=== PATIENT | female | born 1930 | race Caucasian/White ===

== ENCOUNTER 2016-10-27 13:14 | Emergency (ER) | payer MEDICAID ==
[~2016-10-27] VITALS: Ht 152.4 cm; Wt 60.0 kg
[~2016-10-27 13:14] MED LIST: ATOR40TA21 PO; BENA20TA48 PO; CITA20TA6 PO; CLOP75TA4 PO; LEVE500S9 PO; MTF1000T PO
[2016-10-27 13:26] VITALS: Ht 152.4 cm; Wt 60.0 kg
[2016-10-27] MEDS ORDERED: SOD CHLORIDE 0.9% 500 ML IV STA (14:03)
[2016-10-27] MEDS ORDERED: CITA20TA6 PO (14:19)
[2016-10-27] MEDS ORDERED: ATOR40TA68 PO (14:19)
[2016-10-27] MEDS ORDERED: METF1000 PO (14:20)
[2016-10-27] MEDS ORDERED: LEVE500T8 PO (14:20)
[2016-10-27] MEDS ORDERED: CLOP75TA4 PO (14:20)
[2016-10-27] MEDS ORDERED: FER325 PO (14:21)
[2016-10-27] MEDS ORDERED: GLIM4TAB PO (14:21)
[2016-10-27] MEDS ORDERED: LOSA25TA5 PO (14:21)
[2016-10-27] MEDS ORDERED: CALC-267 PO (14:23)
[2016-10-27 14:26] LABS: ADD SCAN DIFF NO
[2016-10-27 14:31] LABS: BASOPHILS % 0.6 % (0.0-2.0); EOSINOPHILS % 0.6 % (0.0-7.0); HEMATOCRIT 35.2 % (37.0-47.0); HEMOGLOBIN 11.7 g/dl (12.0-16.0); LYMPHOCYTES % 28.1 % (15.0-51.0); MEAN CORPUSCULAR HEMOGLOBIN 29.2 pg (29.0-33.0); MEAN CORPUSCULAR HGB CONC 33.2 g/dl (32.0-37.0); MEAN CORPUSCULAR VOLUME 87.8 fl (82.0-101.0); MEAN PLATELET VOLUME 9.2 fl (7.4-10.4); MONOCYTE # 0.5 10^3/ul (0.3-0.9); MONOCYTES % 12.7 % (0.0-11.0); NEUTROPHIL # 2.1 10^3/ul (1.6-7.5); NEUTROPHILS % 57.2 % (39.0-77.0); PLATELET COUNT 265 10^3/UL (140-415); RED BLOOD COUNT 4.01 10^6/ul (4.20-5.40); RED CELL DISTRIBUTION WIDTH 13.8 % (11.5-14.5); WHITE BLOOD COUNT 3.6 10^3/ul (4.8-10.8)
--- NOTE | 2016-10-27 14:32 | RADRPT ---
PROCEDURE: CT Head without contrast. CLINICAL INDICATION: Altered mental status TECHNIQUE: The study was performed utilizing a GE 64-slice multidetector CT scanner. Direct spiral axial CT images of the brain were obtained from the vertex to the skull base without contrast. Carrie nal and sagittal reformatted images are provided. The CTDI vol is 44.84 mGy and the DLP is 630.2 mGy -cm. The images were reviewed on a PACS workstation. COMPARISON: 07/18/2012 FINDINGS: Mild to moderate diffuse atrophy is seen with a compensatory ventricular enlargement. Mild to moder ate white matter disease in the periventricular and deep white matter is seen. A chronic left poste rior cerebral artery territory infarct is once again seen and is unchanged. The remainder of the gr ay-white matter differentiation is maintained. No intra or extra-axial fluid collection or mass eff ect or shift in the midline structures is seen. The visualized paranasal sinuses, mastoid air cells , orbits, and calvarium are unremarkable. Vascular calcifications are seen. IMPRESSION: 1. No acute intracranial pathology. 2. Stable mild to moderate diffuse volume loss and mild to moderate chronic microvascular ischemic changes. 3. 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 RPTAT: HPNM Physician Twin Date Time Electronically viewed and signed by Physician Twin on 10/27/2016 14:32 /
--- NOTE | 2016-10-27 14:52 | RADRPT ---
PROCEDURE: XR Chest. CLINICAL INDICATION: Shortness of breath. Altered mental status. TECHNIQUE: Single frontal view. COMPARISON: None. FINDINGS: The lungs are clear. The heart is enlarged. There is calcification in the aorta consistent with atherosclerosis. There is no pleural effusion. There is no pneumothorax. IMPRESSION: 1. Cardiomegaly and atherosclerosis. 2. Otherwise normal chest x-ray. RPTAT: QQ .Bruno Tolliver MD, MD Date Time Electronically viewed and signed by .Bruno Tolliver MD, MD on 10/27/2016 14:51 .R/
[2016-10-27 14:58] LABS: INR 1.02; PROTIME 13.4 Sec (12.2-14.2)
[2016-10-27 14:59] LABS: PARTIAL THROMBOPLASTIN TIME 30.8 Sec (25.0-35.0)
[2016-10-27 15:05] LABS: ALANINE AMINOTRANSFERASE 26 IU/L (13-69); ALBUMIN 4.6 g/dl (3.3-4.9); ALBUMIN/GLOBULIN RATIO 2.19; ALKALINE PHOSPHATASE 108 IU/L (42-121); ANION GAP 21 (8-16); ASPARTATE AMINO TRANSFERASE 22 IU/L (15-46); BILIRUBIN,INDIRECT 0.1 mg/dl (0-1.1); BILIRUBIN,TOTAL 0.1 mg/dl (0.2-1.3); BLOOD UREA NITROGEN 13 mg/dl (7-20); CALCIUM 9.5 mg/dl (8.4-10.2); CARBON DIOXIDE 27 mmol/L (21-31); CHLORIDE 93 mmol/L (97-110); CREATININE 0.71 mg/dl (0.44-1.00); GLUCOSE 250 mg/dl (70-220); POTASSIUM 4.4 mmol/L (3.5-5.1); SODIUM 137 mmol/L (135-144); TOTAL PROTEIN 6.7 g/dl (6.1-8.1)
--- NOTE | 2016-10-27 15:07 | ERA ---
ER Documentation Chief Complaint Date/Time DATE: 10/27/16 TIME: 15:04 Chief Complaint r.side flank pain with burning with urination and confusion x 3 days HPI 86-year-old female who presents the emergency room with some mild confusion. There is no flank pain despite what is noted in triage. The family members concern that the patient may be slightly confused and having some hallucinations which is consistent when she has a bladder infection in the past. The patient has a remote history of stroke but no slurred speech no motor weakness or no head injury or headaches currently. She denies any chest pain or shortness of breath. ROS All systems reviewed and are negative except as per history of present illness. Medications Home Meds Reported Medications Calc/D3/Mag/Zn/Agricultural And Forestry Supervisor/Fuad/[place] (Calcium 600 + Vit D) 1 Each Tablet, 1 TAB PO BID , TAB 10/27/16 Losartan Potassium* (Losartan Potassium*) 25 Mg Tablet, 25 MG PO DAILY, TAB 10/27/16 Glimepiride* (Glimepiride*) 4 Mg Tablet, 4 MG PO WITH BREAKFAST, TAB 10/27/16 Ferrous Sulfate* (Ferrous Sulfate*) 325 Mg Tabec, 325 MG PO DAILY, TAB 10/27/16 Metformin Hcl* (Metformin Hcl*) 1,000 Mg Tablet, 1000 MG PO WITH BREAKFAST DINNE , #60 TAB 10/27/16 Levetiracetam* (Levetiracetam*) 500 Mg Tablet, 1000 MG PO BID, TAB 10/27/16 Clopidogrel Bisulfate* (Clopidogrel Bisulfate*) 75 Mg Tablet, 75 MG PO DAILY, # 30 TAB 10/27/16 Citalopram Hydrobromide* (Citalopram Hydrobromide*) 20 Mg Tablet, 20 MG PO DAILY , #30 TAB 10/27/16 Atorvastatin* (Atorvastatin*) 40 Mg Tablet, 40 MG PO QHS, #30 TAB 10/27/16 Discontinued Reported Medications Metformin* (Glucophage*) 1,000 Mg Tablet, 1000 MG PO BID 04/16/13 Clopidogrel Bisulfate* (Clopidogrel Bisulfate*) 75 Mg Tablet, 75 MG PO DAILY 07/18/12 Levetiracetam* (Keppra*) 500 Mg/5 Ml Solution, 500 MG PO DAILY 07/18/12 Citalopram Hydrobromide* (Citalopram Hydrobromide*) 20 Mg Tablet, 20 MG PO DAILY 07/18/12 Benazepril Hcl* (Benazepril Hcl*) 20 Mg Tablet, 20 MG PO DAILY 07/18/12 Atorvastatin (Lipitor) 40 Mg Tablet, 40 MG PO DAILY 07/18/12 Allergies Allergies: Coded Allergies: No Known Drug Allergies (Verified Allergy, Unknown, 10/27/16) PMhx/Soc History of Surgery: Yes (TUBAL LIGATION) Anesthesia Reaction: No Hx Neurological Disorder: No Hx Respiratory Disorders: No Hx Cardiac Disorders: Yes (HTN) Hx Psychiatric Problems: No Hx Miscellaneous Medical Probl: Yes (DM, HIGH CHOLESTEROL) Hx Alcohol Use: No Hx Substance Use: No Hx Tobacco Use: No Smoking Status: Never smoker FmHx Family History: No diabetes Physical Exam Vitals Vital Signs Date Time Temp Pulse Resp B/P Pulse Ox O2 Delivery O2 Flow Rate FiO2 10/27/16 14:15 Nasal Cannula 1 10/27/16 13:26 97.3 88 16 170/78 96 Physical Exam General: Well developed, well nourished, no acute distress Head: Normocephalic, atraumatic. Eyes: Pupils equally reactive, EOM intact ENT: Moist mucous membranes Neck: Supple, no lymphadenopathy Respiratory: Lungs clear bilaterally, no distress Cardiovascular: RRR, no murmurs, rubs, or gallops Abdominal: Soft, non-tender, non-distended, no peritoneal signs : Deferred MSK: No edema, no unilateral swelling, 5/5 strength Neurologic: Alert and oriented, moving all extremities, normal speech, no focal weakness, no cerebellar signs Skin: No rash Psych: Normal mood Result Diagram: 10/27/16 1415 10/27/16 1415 Results 24 hrs Laboratory Tests Test 10/27/16 14:11 10/27/16 14:15 10/27/16 14:45 Bedside Glucose 257mg/dL White Blood Count 3.610^3/ul Red Blood Count 4.0110^6/ul Hemoglobin 11.7g/dl Hematocrit 35.2% Mean Corpuscular Volume 87.8fl Mean Corpuscular Hemoglobin 29.2pg Mean Corpuscular Hemoglobin Concent 33.2g/dl Red Cell Distribution Width 13.8% Platelet Count 95870^3/UL Mean Platelet Volume 9.2fl Neutrophils % 57.2% Lymphocytes % 28.1% Monocytes % 12.7% Eosinophils % 0.6% Basophils % 0.6% Nucleated Red Blood Cells % 0.0/100WBC Neutrophils # 2.110^3/ul Lymphocytes # 1.010^3/ul Monocytes # 0.510^3/ul Eosinophils # 0.010^3/ul Basophils # 0.010^3/ul Nucleated Red Blood Cells # 0.010^3/ul Prothrombin Time 13.4Sec Prothrombin Time Ratio 1.0 INR International Normalized Ratio 1.02 Activated Partial Thromboplast Time 30.8Sec Sodium Level 137mmol/L Potassium Level 4.4mmol/L Chloride Level 93mmol/L Carbon Dioxide Level 27mmol/L Anion Gap 21 Blood Urea Nitrogen 13mg/dl Creatinine 0.71mg/dl Glucose Level 250mg/dl Calcium Level 9.5mg/dl Total Bilirubin 0.1mg/dl Direct Bilirubin 0.00mg/dl Indirect Bilirubin 0.1mg/dl Aspartate Amino Transf (AST/SGOT) 22IU/L Alanine Aminotransferase (ALT/SGPT) 26IU/L Alkaline Phosphatase 108IU/L Troponin I < 0.012ng/ml Total Protein 6.7g/dl Albumin 4.6g/dl Globulin 2.10g/dl Albumin/Globulin Ratio 2.19 Free Thyroxine Index 3.06ug/ml Thyroxine (T4) 9.4ug/dl Triiodothyronine (T3) Uptake 32.5% Urine Color YELLOW Urine Clarity CLEAR Urine pH 6.0 Urine Specific [place] 1.013 Urine Ketones TRACEmg/dL Urine Nitrite NEGATIVEmg/dL Urine Bilirubin NEGATIVEmg/dL Urine Urobilinogen NEGATIVEmg/dL Urine Leukocyte Esterase NEGATIVELeu/ul Urine Microscopic RBC 5/HPF Urine Microscopic WBC 0/HPF Urine Hemoglobin 1+mg/dL Urine Glucose 2+mg/dL Urine Total Protein NEGATIVEmg/dl Current Medications Medications (Trade) Dose Ordered Sig/Memo Route PRN Reason Start Time Stop Time Status Last Admin Dose Admin Sodium Chloride (NS) 500 ml @ 500 mls/hr Q1H STAT IV 10/27/16 14:03 10/27/16 15:02 DC 10/27/16 14:20 Ondansetron HCl (Zofran Inj) 4 mg BRIDGE ORDER PRN IV NAUSEA AND/OR VOMITING 10/27/16 16:00 10/28/16 15:59 Acetaminophen (Tylenol Tab) 650 mg ER BRIDGE PRN PO MILD PAIN/FEVER 10/27/16 16:00 10/28/16 15:59 Procedures/MDM EKG, MONITORS, & DIAGNOSTIC IMAGING: EKG: I reviewed and interpreted a 12-lead EKG. Rhythm: Normal sinus rhythm Ectopy: None Intervals: No abnormalities ST segments: No elevations or depressions T waves: No contiguous inversions Chest x-ray: I reviewed and interpreted a 1 view of the chest Mediastinum: No enlargement Cardiac silhouette: No cardiomegaly Airspace: Clear lung sood bilaterally without evidence of pneumothorax Bones: No evidence of fracture CT brain: IMPRESSION: 1. No acute intracranial pathology. 2. Stable mild to moderate diffuse volume loss and mild to moderate chronic microvascular ischemic changes. 3. 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 RPTAT: HPNM LAB INTERPRETATION: Mild leukopenia MEDICAL DECISION MAKING: The patient presents with possible mild altered mental status versus hallucinations. Given her age and prior history this is likely secondary to UTI. Low clinical concern for stroke. The patient is otherwise in good spirits , happy with a nonfocal neurologic exam. She is caring for activities of daily living and has family members for support. While he would have a low threshold for hospitalization given the altered mental status in this age group if there is a clear urinary tract infection that would be likely explain her symptoms outpatient management may be appropriate. ER COURSE: The patient's urinalysis does not suggest UTI. The patient is resting comfortably. The family member states, using an clothespin drier operator, that occasionally she gets this way when she has not been sleeping well and this is the case. She states that this is a recurring issue for the patient does not wish to be hospitalized. I discussed the risks, benefits, alternatives of inpatient versus outpatient management. The patient and family member wish to take the patient home. I believe this is reasonable. They verbalized understanding of the risks including delayed diagnosis, undiagnosed stroke. I kept the patient and/or family informed of laboratory and diagnostic imaging results throughout the emergency room course. DISPOSITION PLAN: We discussed follow up with the patient's primary care doctor within 24 to 48 hours as needed. We also discussed return to the emergency room for worsening symptoms or worsening condition. Outpatient referral: [None required] Departure Diagnosis: Primary Impression: Altered mental status Qualified Code: R41.82 - Altered mental status, unspecified altered mental status type Additional Impression: Hyperglycemia Condition: Stable DEE DEE REED MD Oct 27, 2016 15:07
[2016-10-27 15:13] LABS: ADD UMIC YES; UR ASCORBIC ACID NEGATIVE (NEGATIVE); UR BILIRUBIN (Dip) NEGATIVE (NEGATIVE); UR BLOOD (Dip) 1+ mg/dL (NEGATIVE); UR CLARITY CLEAR (CLEAR); UR COLOR YELLOW (YELLOW); UR GLUCOSE (Dip) 2+ mg/dL (NEGATIVE); UR KETONES (Dip) TRACE mg/dL (NEGATIVE); UR LEUKOCYTE ESTERASE (Dip) NEGATIVE Leu/ul (NEGATIVE); UR NITRITE (Dip) NEGATIVE (NEGATIVE); UR RBC 5 /HPF (0-5); UR SPECIFIC GRAVITY (Dip) 1.013 (1.003-1.030); UR TOTAL PROTEIN (Dip) NEGATIVE (NEGATIVE); UR UROBILINOGEN (Dip) NEGATIVE (NEGATIVE)
[2016-10-27 15:21] LABS: T3 UPTAKE 32.5 % (23.5-40.5); TROPONIN-I < 0.012 ng/ml (0.00-0.12)
[2016-10-27] MEDS ORDERED: ONDANSETRON 4 MG INJ IV PRN (16:00)
[2016-10-27] MEDS ORDERED: ACETAMINOPHEN 325 MG TAB PO PRN (16:00)
[2016-10-27] MEDS ORDERED: POLY10DR19 BOTH EYES (16:15)
[2016-10-27 16:34] VITALS: BP 162/72; PULSE 77; RESP 16; TEMP 97.3
== END 2016-10-27 16:14 | disposition home or self-care (01) ==
LOC: E/R 13:14
DX: R41.82 Altered mental status, unspecified (principal); E11.65 Type 2 diabetes mellitus with hyperglycemia; I10 Essential (primary) hypertension; Z79.01 Long term (current) use of anticoagulants; Z79.84 Long term (current) use of oral hypoglycemic drugs
CPT/HCPCS: 36415; 70450; 71010; 80053; 81001; 82962; 84436; 84479; 84484; 85025; 85610; 85730; J7040; P9612; Z7502; 93005

== ENCOUNTER 2016-12-22 10:10 | Emergency (ER) | payer MEDICAID ==
[~2016-12-22] VITALS: Ht 162.6 cm; Wt 58.0 kg
[~2016-12-22 10:10] MED LIST changes: -ATOR40TA21 PO; +ATOR40TA68 PO; -BENA20TA48 PO; +CALC-267 PO; +FER325 PO; +GLIM4TAB PO; -LEVE500S9 PO; +LEVE500T8 PO; +LOSA25TA5 PO; +METF1000 PO; -MTF1000T PO; +POLY10DR19 BOTH EYES
[2016-12-22 10:13] VITALS: Ht 162.6 cm; Wt 58.0 kg
[2016-12-22] MEDS ORDERED: ONDANSETRON 4 MG INJ IV STA (11:52)
[2016-12-22] MEDS ORDERED: SOD CHLORIDE 0.9% 1,000 ML IV STA (11:52)
[2016-12-22 12:21] LABS: BASOPHILS % 0.5 % (0.0-2.0); EOSINOPHILS % 0.2 % (0.0-7.0); HEMATOCRIT 39.3 % (37.0-47.0); HEMOGLOBIN 13.2 g/dl (12.0-16.0); LYMPHOCYTES # 1.2 10^3/ul (0.8-2.9); LYMPHOCYTES % 19.5 % (15.0-51.0); MEAN CORPUSCULAR HEMOGLOBIN 29.2 pg (29.0-33.0); MEAN CORPUSCULAR HGB CONC 33.6 g/dl (32.0-37.0); MEAN CORPUSCULAR VOLUME 86.9 fl (82.0-101.0); MEAN PLATELET VOLUME 9.4 fl (7.4-10.4); MONOCYTE # 0.8 10^3/ul (0.3-0.9); MONOCYTES % 13.3 % (0.0-11.0); PLATELET COUNT 278 10^3/UL (140-415); RED BLOOD COUNT 4.52 10^6/ul (4.20-5.40); RED CELL DISTRIBUTION WIDTH 14.1 % (11.5-14.5); WHITE BLOOD COUNT 6.3 10^3/ul (4.8-10.8)
[2016-12-22 12:42] LABS: ALANINE AMINOTRANSFERASE 31 IU/L (13-69); ALBUMIN 4.5 g/dl (3.3-4.9); ALKALINE PHOSPHATASE 68 IU/L (42-121); ANION GAP 19 (8-16); ASPARTATE AMINO TRANSFERASE 77 IU/L (15-46); BILIRUBIN,INDIRECT 0.4 mg/dl (0-1.1); BILIRUBIN,TOTAL 0.4 mg/dl (0.2-1.3); BLOOD UREA NITROGEN 15 mg/dl (7-20); CALCIUM 9.8 mg/dl (8.4-10.2); CARBON DIOXIDE 29 mmol/L (21-31); CHLORIDE 94 mmol/L (97-110); CREATININE 0.87 mg/dl (0.44-1.00); GLUCOSE 218 mg/dl (70-220); POTASSIUM 4.1 mmol/L (3.5-5.1); SODIUM 138 mmol/L (135-144); TOTAL PROTEIN 7.5 g/dl (6.1-8.1)
--- NOTE | 2016-12-22 12:43 | RADRPT ---
PROCEDURE: XR Chest 1 View. CLINICAL INDICATION: Abnormal breath sounds, abdominal pain. TECHNIQUE: AP view of the chest was obtained. COMPARISON: October 27, 2016 FINDINGS: The heart size is within normal limits. Calcified atherosclerosis is noted in the aorta. Subsegment al atelectasis is noted in the bilateral lower lobes. 2 subtle nodular densities measuring up to ap proximately 15 mm are identified over the right lower lobe. No consolidations are identified. No pn eumothorax is seen. Osseous structures are intact. IMPRESSION: Calcified atherosclerosis in the aorta. Subtle nodular densities measuring up to 15 mm over the right lower lobe. These may reflect lung no dules. Further characterization with CT chest is recommended. Subsegmental atelectasis in the bilateral lower lobes. RPTAT: AA .Ellis Lezama MD, MD Date Time Electronically viewed and signed by .Ellis Lezama MD, MD on 12/22/2016 12:43 .P/
[2016-12-22 12:54] LABS: TROPONIN-I < 0.012 ng/ml (0.00-0.12)
[2016-12-22] MEDS ORDERED: SOD CHLORIDE 0.9% 100 ML ONE (13:28)
[2016-12-22] MEDS ORDERED: IOHEXOL 300MG/ML 150 ML BTL ONE (13:28)
--- NOTE | 2016-12-22 14:22 | RADRPT ---
PROCEDURE: CT soft tissue neck with contrast CLINICAL INDICATION: Neck swelling, lump in throat, vomiting TECHNIQUE: A CT of the soft tissues of the neck with contrast was performed on a multidetector CT s RIDERS, with multiplanar reformats. 80 cc Omnipaque-300 intravenous contrast were administered. O ne or more of the following dose reduction techniques were used: Automated exposure control, adjustm ent in mA and / or kV according to patient size, use of iterative reconstructive technique. CTDI vo l = 10 mGy and DLP = 224 mGy-cm. COMPARISON: None available FINDINGS: The there is soft tissue stranding at the subcutaneous lower anterior infrahyoid neck. No focal flu id collection is identified. There are bilateral thyroid nodules, with a dominant large nodule cent ered in the isthmus which measures up to 3.4 cm. The subjacent trachea is mildly narrowed in the AP diameter. No enlarged lymph node meeting size criteria/abnormal appearing lymph node is identified throughout the neck. The pharynx, and larynx are unremarkable>. The parapharyngeal and retropharyn geal spaces are clear. Carotid atherosclerotic calcifications are noted bilaterally. The parotid a nd submandibular glands are unremarkable. The imaged picket labor union spaces are symmetric. Imaged skull base appears intact. The perivertebral and posterior cervical spaces are unremarkable. Bilateral artificial lenses are noted. Oral cavity is partially obscured by artifacts from dental work, witho ut abnormality seen. 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 Cervical spondylosis is noted. Mild biapical scarring/atelectasis is seen. IMPRESSION: 1. Subcutaneous stranding at the anterior lower neck, which may be infectious/inflammatory. Correl ate clinically. 2. Thyroid nodules, with dominant large 3.4 cm nodule centered at the isthmus; follow-up with ultra sound/tissue diagnosis is recommended. Mild narrowing of the adjacent trachea. 3. Chronic left maxillary sinus disease. RPTAT: VV .Rony Eden MD, Date Time Electronically viewed and signed by .Rony Eden MD, on 12/22/2016 14:21 .O/
[2016-12-22] MEDS ORDERED: CEPH-443 PO (15:11)
[2016-12-22] MEDS ORDERED: SULF1TAB31 PO (15:11)
--- NOTE | 2016-12-22 15:13 | ERD ---
ER Documentation Chief Complaint Date/Time DATE: 12/22/16 TIME: 15:12 Chief Complaint Complains of vomiting and lump to the throat since this am HPI Patient is an 86-year-old female with hypertension and diabetes who presents with vomiting once yesterday. She also says that she has "an inflammation in the neck in the middle part of the lower neck". She said the symptoms started today. She has no fevers. She has sore throat but no difficulty with swallowing, breathing, or speaking. She has had no treatment as of yet. She says her primary care is at [facility]. ROS All systems reviewed and are negative except as per history of present illness. Medications Home Meds Active Scripts Cephalexin* (Keflex*) 500 Mg Capsule, 500 MG PO QID for 7 Days, CAP Prov:MALCOM GUZMAN MD 12/22/16 Sulfamethoxazole/Trimethoprim* (Bactrim Ds* Tablet) 1 Each Tablet, 1 TAB PO BID , #14 TAB Prov:MALCOM GUZMAN MD 12/22/16 Reported Medications Calc/D3/Mag/Zn/Histopathology Technician/Fuad/[place] (Calcium 600 + Vit D) 1 Each Tablet, 1 TAB PO BID , TAB 10/27/16 Losartan Potassium* (Losartan Potassium*) 25 Mg Tablet, 25 MG PO DAILY, TAB 10/27/16 Ferrous Sulfate* (Ferrous Sulfate*) 325 Mg Tabec, 325 MG PO DAILY, TAB 10/27/16 Metformin Hcl* (Metformin Hcl*) 1,000 Mg Tablet, 1000 MG PO WITH BREAKFAST DINNE , #60 TAB 10/27/16 Levetiracetam* (Levetiracetam*) 500 Mg Tablet, 1000 MG PO BID, TAB 10/27/16 Clopidogrel Bisulfate* (Clopidogrel Bisulfate*) 75 Mg Tablet, 75 MG PO DAILY, # 30 TAB 10/27/16 Citalopram Hydrobromide* (Citalopram Hydrobromide*) 20 Mg Tablet, 20 MG PO DAILY , #30 TAB 10/27/16 Atorvastatin* (Atorvastatin*) 40 Mg Tablet, 40 MG PO QHS, #30 TAB 10/27/16 Discontinued Reported Medications Glimepiride* (Glimepiride*) 4 Mg Tablet, 4 MG PO WITH BREAKFAST, TAB 10/27/16 Discontinued Scripts Polymyxin B Sulfate-TMP* (Polymyxin B-TMP Eye Drops*) 10 Ml Drops, 1 DROP BOTH EYES QID for 7 Days, EA Prov:DEE DEE REED MD 10/27/16 Allergies Allergies: Coded Allergies: No Known Drug Allergies (Verified Allergy, Unknown, 12/22/16) PMhx/Soc Medical and Surgical Hx: pt denies Medical Hx, pt denies Surgical Hx History of Surgery: Yes (TUBAL LIGATION) Anesthesia Reaction: No Hx Neurological Disorder: No Hx Respiratory Disorders: No Hx Cardiac Disorders: Yes (HTN) Hx Psychiatric Problems: No Hx Miscellaneous Medical Probl: Yes (DM, HIGH CHOLESTEROL) Hx Alcohol Use: No Hx Substance Use: No Hx Tobacco Use: No Smoking Status: Former smoker FmHx Family History: No diabetes Physical Exam Vitals Vital Signs Date Time Temp Pulse Resp B/P Pulse Ox O2 Delivery O2 Flow Rate FiO2 12/22/16 10:13 98.0 90 20 132/65 95 Physical Exam Const: No acute distress Head: Atraumatic Eyes: Normal Conjunctiva ENT: Normal External Ears, Nose and Mouth. Neck: Mild fullness to the midline of the anterior neck at the lower portion Resp: Clear to auscultation bilaterally Cardio: Regular rate and rhythm, no murmurs Abd: Soft, non tender, non distended. Normal bowel sounds Skin: No petechiae or rashes Back: No midline or flank tenderness Ext: No cyanosis, or edema Neur: Awake and alert Psych: Normal Mood and Affect Result Diagram: 12/22/16 1155 12/22/16 1155 Results 24 hrs Laboratory Tests Test 12/22/16 11:55 White Blood Count 6.310^3/ul Red Blood Count 4.5210^6/ul Hemoglobin 13.2g/dl Hematocrit 39.3% Mean Corpuscular Volume 86.9fl Mean Corpuscular Hemoglobin 29.2pg Mean Corpuscular Hemoglobin Concent 33.6g/dl Red Cell Distribution Width 14.1% Platelet Count 49547^3/UL Mean Platelet Volume 9.4fl Neutrophils % 66.0% Lymphocytes % 19.5% Monocytes % 13.3% Eosinophils % 0.2% Basophils % 0.5% Nucleated Red Blood Cells % 0.0/100WBC Neutrophils # (Manual) 4.110^3/ul Lymphocytes # 1.210^3/ul Monocytes # 0.810^3/ul Eosinophils # 0.010^3/ul Basophils # 0.010^3/ul Nucleated Red Blood Cells # 0.010^3/ul Sodium Level 138mmol/L Potassium Level 4.1mmol/L Chloride Level 94mmol/L Carbon Dioxide Level 29mmol/L Anion Gap 19 Blood Urea Nitrogen 15mg/dl Creatinine 0.87mg/dl Glucose Level 218mg/dl Calcium Level 9.8mg/dl Total Bilirubin 0.4mg/dl Direct Bilirubin 0.00mg/dl Indirect Bilirubin 0.4mg/dl Aspartate Amino Transf (AST/SGOT) 77IU/L Alanine Aminotransferase (ALT/SGPT) 31IU/L Alkaline Phosphatase 68IU/L Troponin I < 0.012ng/ml Total Protein 7.5g/dl Albumin 4.5g/dl Globulin 3.00g/dl Albumin/Globulin Ratio 1.50 Lipase 147U/L Current Medications Medications (Trade) Dose Ordered Sig/Memo Route PRN Reason Start Time Stop Time Status Last Admin Dose Admin Sodium Chloride (NS) 1,000 ml @ 1,000 mls/hr Q1H STAT IV 12/22/16 11:52 12/22/16 12:51 DC 12/22/16 12:01 Ondansetron HCl (Zofran Inj) 4 mg ONCE STAT IV 12/22/16 11:52 12/22/16 11:53 DC 12/22/16 12:01 IV Flush 10 ml 10 ml STK-MED ONCE .ROUTE 12/22/16 13:28 12/22/16 13:29 DC 12/22/16 13:50 Sodium Chloride (NS) 100 ml @ ud STK-MED ONCE .ROUTE 12/22/16 13:28 12/22/16 13:29 DC 12/22/16 13:50 Iohexol (Omnipaque 300mg/ ml) 150 ml STK-MED ONCE .ROUTE 12/22/16 13:28 12/22/16 13:29 DC 12/22/16 13:51 Cephalexin (Keflex) 500 mg ONCE ONCE PO 12/22/16 15:30 12/22/16 15:31 DC 12/22/16 15:20 Trimethoprim/ Sulfamethoxazole (Bactrim (Ds)) 1 tab ONCE ONCE PO 12/22/16 15:30 12/22/16 15:31 DC 12/22/16 15:20 Procedures/MDM EKG read by me: Rate/Rhythm: Regular rate and rhythm at a normal rate Intervals: Normal Impression: No evidence of ischemia or arrhythmia PROCEDURE: CT soft tissue neck with contrast CLINICAL INDICATION: Neck swelling, lump in throat, vomiting TECHNIQUE: A CT of the soft tissues of the neck with contrast was performed on a multidetector CT scanner, with multiplanar reformats. 80 cc Omnipaque-300 intravenous contrast were administered. One or more of the following dose reduction techniques were used: Automated exposure control, adjustment in mA and / or kV according to patient size, use of iterative reconstructive technique. CTDI vol = 10 mGy and DLP = 224 mGy-cm. COMPARISON: None available FINDINGS: The there is soft tissue stranding at the subcutaneous lower anterior infrahyoid neck. No focal fluid collection is identified. There are bilateral thyroid nodules, with a dominant large nodule centered in the isthmus which measures up to 3.4 cm. The subjacent trachea is mildly narrowed in the AP diameter. No enlarged lymph node meeting size criteria/abnormal appearing lymph node is identified throughout the neck. The pharynx, and larynx are unremarkable>. The parapharyngeal and retropharyngeal spaces are clear. Carotid atherosclerotic calcifications are noted bilaterally. The parotid and submandibular glands are unremarkable. The imaged business strategist spaces are symmetric. Imaged skull base appears intact. The perivertebral and posterior cervical spaces are unremarkable. Bilateral artificial lenses are noted. Oral cavity is partially obscured by artifacts from dental work, without abnormality seen. 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 Cervical spondylosis is noted. Mild biapical scarring/ atelectasis is seen. IMPRESSION: 1. Subcutaneous stranding at the anterior lower neck, which may be infectious/ inflammatory. Correlate clinically. 2. Thyroid nodules, with dominant large 3.4 cm nodule centered at the isthmus; follow-up with ultrasound/tissue diagnosis is recommended. Mild narrowing of the adjacent trachea. 3. Chronic left maxillary sinus disease. RPTAT: VV .Rony Eden MD, MD Date Time Electronically viewed and signed by .Rony Eden MD, MD on 12/22/2016 14:21 Patient is an 86-year-old female With hypertension and diabetes who presents with one episode of vomiting and a thyroid neck mass. I did provide patient with copy of her chest x-ray, CT scan report, and laboratory studies prior to discharge. I believe there may be an element of inflammatory or infectious process and Keflex and Bactrim will be given. She can have further follow-up of this thyroid nodule as an outpatient. She can return for any worsening symptoms. There is no sign of airway compromise or difficulty breathing at this time. There is no stridor over the neck. She can follow-up with her primary doctor and can return if symptoms worsen. Departure Diagnosis: Primary Impression: Neck abscess Additional Impression: Nausea and vomiting Vomiting type: unspecified Vomiting Intractability: non-intractable Qualified Code: R11.2 - Non-intractable vomiting with nausea, unspecified vomiting type Condition: Fair Patient Instructions: Nausea and Vomiting-Adult, Abscess, Antiobiotic Treatment Only Referrals: JOHNNY BYERS MD Additional Instructions: Specialist:Usted tiene arianna condicin mdica que requiere que magdalena a un especialista dentro de los prximos 1-2 fierro.POR FAVOR,CON LORA SEGUIMIENTO DE PRIMARIA PHSICIAN refferal. SI USTED NO TIENE UN MDICO GENERAL Y / O USTED NO PUEDE PAGAR vidhi a un mdico,los siguientes gruber RECURSOS sido suministrado a usted. ES LORA RESPONSABILIDAD PARA SER VISTOS POR EL ESPECIALISTA: MALCOM GUZMAN MD Dec 22, 2016 15:13
[2016-12-22] MEDS ORDERED: TRIMETHOPRIM/SULFAMETHOX (DS) TAB PO ONE (15:30)
[2016-12-22] MEDS ORDERED: CEPHALEXIN 500 MG CAP PO ONE (15:30)
== END 2016-12-22 15:48 | disposition home or self-care (01) ==
LOC: E/R 10:10
DX: L02.11 Cutaneous abscess of neck (principal); R11.2 Nausea with vomiting, unspecified; I10 Essential (primary) hypertension; E11.9 Type 2 diabetes mellitus without complications; Z79.84 Long term (current) use of oral hypoglycemic drugs; Z87.891 Personal history of nicotine dependence
CPT/HCPCS: 36415; 70491; 71010; 80053; 83690; 84484; 85025; 93005; 96374; J2405; J7030; Q9967; Z7502; Z7610

== ENCOUNTER 2017-07-04 03:44 | Emergency (ER) | END 2017-07-05 20:05 | disposition home or self-care (01) ==